=== PATIENT | male | born 1960 | race African-American/Black ===

== ENCOUNTER 2021-07-27 06:53 | Emergency (ER) | payer OTHER ==
[2021-07-27 07:14] VITALS: TEMP 99.1; BMI 51.7
[2021-07-27 08:05] VITALS: BP 145/78; PULSE 87
== END 2021-07-27 08:07 | disposition home or self-care (01) ==
LOC: JER 06:53
DX: R20.2 Paresthesia of skin (principal)
CPT/HCPCS: 99283-25